=== PATIENT | male | born 1940 | race African-American/Black ===

== ENCOUNTER 2017-05-09 08:06 | Inpatient (IN) | payer MEDICARE ==
[2017-05-09] VITALS (7 sets, daily range): BP systolic 131–171; BP diastolic 67–90
[~2017-05-09] VITALS: Ht 172.7 cm; Wt 79.8 kg
[~2017-05-09 08:06] MED LIST: FURO-151 PO; LEVO500T15 PO; NIFE30TA83 PO
[2017-05-09] MEDS ORDERED: IPRATROPIUM BROMIDE (0.02%) 0.5MG/2.5ML NEB HHN STA (08:10)
[2017-05-09] MEDS ORDERED: METHYLPREDNISOLONE SOD SUCC 125 MG/2 ML VIAL IV STA (08:10)
[2017-05-09] MEDS ORDERED: ALBUTEROL (0.083%) 2.5MG/3ML NEB HHN STA (08:10)
[2017-05-09] MEDS ORDERED: NITROGLYCERIN OINT 1GM/INCH UDPKT TD ONE ×2 (08:15→08:45)
[2017-05-09] MEDS ORDERED: MAGNESIUM 2 G PREMIX 50 ML IV ONE (08:15)
[2017-05-09] MEDS ORDERED: FUROSEMIDE 40MG/4ML VIAL IVP ONE (08:15)
[2017-05-09] MEDS ORDERED: IPRATROPIUM BROMIDE (0.02%) 0.5MG/2.5ML NEB ONE (08:20)
[2017-05-09] MEDS ORDERED: ALBUTEROL (0.083%) 2.5MG/3ML NEB ONE (08:21)
[2017-05-09] MEDS ORDERED: ALBUTEROL (0.5%) 2.5MG/0.5ML NEB HHN ONE (08:21)
[2017-05-09] MEDS ORDERED: HYDRALAZINE (NEO) 1MG/ML IV ONE (08:30)
[2017-05-09 08:40] LABS: BASOPHILS % 0.7 % (0.0-2.0); EOSINOPHILS % 1.1 % (0.0-5.0); HEMOGLOBIN. 13.7 g/dL (14.0-18.0); LYMPHOCYTES % 11.3 % (20.0-50.0); MEAN CORPUSCULAR HEMOGLOBIN 30.5 pg (28.0-32.0); MEAN CORPUSCULAR VOLUME 93.8 fL (80.0-94.0); MEAN PLATELET VOLUME 9.9 fl (7.4-10.4); MONOCYTES % 7.2 % (2.0-8.0); NEUTROPHILS % 79.7 % (40.0-76.0); PLATELET 214 x1000/uL (130-400); RED BLOOD CELL COUNT 4.48 mill/uL (4.7-6.1); RED CELL DISTRIBUTION WIDTH 15.7 % (11.6-14.6)
[2017-05-09] MEDS ORDERED: HYDRALAZINE 20MG/ML VIAL IV SCH (08:45)
[2017-05-09 08:46] LABS: INR 1.1; PARTIAL THROMBOPLASTIN TIME 26.1 sec (24.0-34.0); PROTHROMBIN TIME 11.2 sec
[2017-05-09 08:54] LABS: CARBON DIOXIDE 24 mEq/L (21-32); CHLORIDE 108 mEq/L (98-107); TROPONIN I 0.11 ng/mL (0.00-0.04)
[2017-05-09 09:36] LABS: BG BASE EXCESS -1.6 mmol/L (-2.0-2.0); BG BILEVEL POS AIRWAY PRESSURE ST=15/5; BG CARBOXYHEMOGLOBIN 1.7 % (0.5-1.5); BG FRACTION INSPIRED OXYGEN 50; BG HCO3 ACT 22.4 mmol/L (22.0-26.0); BG METHEMOGLOBIN 0.2 % (0.0-1.5); BG OXYHEMOGLOBIN 97.1 % (94.0-97.0); BG PCO2 35.7 mmHg (35.0-45.0); BG PH 7.415 (7.350-7.450); BG PO2 147.5 mmHg (75.0-100.0); BG PRESSURE SUPPORT 10; BG SAMPLE SITE LEFT RADIAL; BG TOTAL HEMOGLOBIN 14.8 g/dL (12.0-18.0); BG VENT MODE MASK - BIPAP; BG VENT RATE 20 set
[2017-05-09 10:17] LABS: CLARITY URINE CLEAR (CLEAR); COLOR URINE YELLOW (YELLOW); GLUCOSE URINE NEGATIVE (NEGATIVE); KETONES URINE NEGATIVE (NEGATIVE); LEUKOCYTE ESTERASE URINE TRACE (NEGATIVE); NITRITE URINE NEGATIVE (NEGATIVE); OCCULT BLOOD URINE NEGATIVE (NEGATIVE); PH URINE 5.5 (4.5-8.0); PROTEIN URINE NEGATIVE (NEGATIVE); SPECIFIC GRAVITY URINE 1.007 (1.005-1.030); UROBILINOGEN URINE 0.2 E.U./dL (0.2-1.0)
[2017-05-09] MEDS ORDERED: LORAZEPAM 2MG/ML CPJ IV PRN (11:45)
[2017-05-09] MEDS ORDERED: HYDROMORPHONE HCL/PF 2MG/ML CPJ IV PRN (11:45)
[2017-05-09] MEDS ORDERED: GUAIFENESIN 200MG/10ML SUGAR FREE UDC PO PRN (11:45)
[2017-05-09] MEDS ORDERED: DIPHENHYDRAMINE 50MG/ML VIAL IV PRN (11:45)
[2017-05-09] MEDS ORDERED: ONDANSETRON HCL 4MG/2ML VIAL IV PRN (11:45)
[2017-05-09] MEDS ORDERED: HYDROCODONE/ACETAMINOPHEN 5/325MG TABLET PO PRN (11:45)
[2017-05-09] MEDS ORDERED: MAGNESIUM/ALUMINUM HYDROXIDE/SIMETHICONE 30ML UDC PO PRN (11:45)
[2017-05-09] MEDS ORDERED: NA PHOS,M-B/NA PHOS,DI-BA ENEMA 118ML PR PRN (11:45)
[2017-05-09] MEDS ORDERED: ACETAMINOPHEN 325MG TABLET PO PRN (11:45)
[2017-05-09] MEDS ORDERED: DOCUSATE SODIUM 100MG CAPSULE PO PRN (11:45)
[2017-05-09] MEDS ORDERED: LEVOFLOXACIN 750MG PREMIX 150 ML IV SCH (12:15)
[2017-05-09] MEDS: METHYLPREDNISOLONE SOD SUCC 125 MG/2 ML VIAL IV SCH ×2 (12:47→17:45)
[2017-05-09] MEDS: CLONIDINE 0.1MG TABLET PO PRN (12:48)
[2017-05-09] MEDS: ASPIRIN 81MG EC TABLET PO SCH (12:48)
[2017-05-09] MEDS: ENOXAPARIN 40MG/0.4ML SYR SUBCUT SCH (12:53)
[2017-05-09] MEDS: CARVEDILOL 6.25 MG TABLET PO SCH ×2 (13:41→21:04)
[2017-05-09] MEDS: LOSARTAN POTASSIUM 50 MG TABLET PO SCH (13:42)
[2017-05-09] MEDS: ISOSORB DINIT/HYDRALAZINE HCL 20/37.5MG TABLET PO SCH ×2 (13:42→21:04)
[2017-05-09] MEDS: SPIRONOLACTONE 25MG TABLET PO SCH (13:42)
[2017-05-09 15:09] LABS: CARBON DIOXIDE 24 mEq/L (21-32); CHLORIDE 107 mEq/L (98-107)
[2017-05-09 15:15] LABS: TROPONIN I 0.13 ng/mL (0.00-0.04)
[2017-05-09] MEDS: FUROSEMIDE 40MG/4ML VIAL IV SCH (17:45)
[2017-05-09] MEDS ORDERED: DEXTROSE 50% WATER 50ML SYRINGE IV PRN (17:45)
[2017-05-09] MEDS: INSULIN LISPRO 100 UNITS/ML SUBCUT SCH ×2 (17:59→21:00)
[2017-05-09] MEDS: IPRATROPIUM/ALBUTEROL 0.5-3(2.5)MG/3ML NEB HHN SCH (20:36)
[2017-05-09] MEDS: IPRATROPIUM/ALBUTEROL 0.5-3(2.5)MG/3ML NEB INH PRN ×2 (20:36→23:05)
[2017-05-09] MEDS: ATORVASTATIN CALCIUM 10MG TABLET PO SCH (21:04)
[2017-05-09] MEDS: BLOOD SUGAR DIAGNOSTIC STRIP TEST SCH (21:05)
[2017-05-10] VITALS (14 sets, daily range): BP systolic 136–170; BP diastolic 66–94
[2017-05-10] MEDS: IPRATROPIUM/ALBUTEROL 0.5-3(2.5)MG/3ML NEB HHN SCH ×6 (00:03→20:28)
[2017-05-10] MEDS: METHYLPREDNISOLONE SOD SUCC 125 MG/2 ML VIAL IV SCH ×3 (00:17→13:02)
[2017-05-10] MEDS: ISOSORB DINIT/HYDRALAZINE HCL 20/37.5MG TABLET PO SCH ×3 (05:54→23:34)
[2017-05-10] MEDS: CLONIDINE 0.1MG TABLET PO PRN ×2 (05:59→18:10)
[2017-05-10 07:09] LABS: BASOPHILS % 0.1 % (0.0-2.0); HEMATOCRIT. 38.5 % (42.0-52.0); HEMOGLOBIN. 12.8 g/dL (14.0-18.0); LYMPHOCYTES % 7.6 % (20.0-50.0); MEAN CORPUSCULAR HEMOGLOBIN 30.8 pg (28.0-32.0); MEAN CORPUSCULAR VOLUME 92.6 fL (80.0-94.0); MONOCYTES % 3.8 % (2.0-8.0); NEUTROPHILS % 88.5 % (40.0-76.0); PLATELET 208 x1000/uL (130-400); RED BLOOD CELL COUNT 4.16 mill/uL (4.7-6.1); RED CELL DISTRIBUTION WIDTH 15.6 % (11.6-14.6)
[2017-05-10 07:18] LABS: CARBON DIOXIDE 24 mEq/L (21-32); CHLORIDE 104 mEq/L (98-107); HDL CHOLESTEROL 45 mg/dL (40-59); LDL CHOLESTEROL 145 mg/dL (5-100); T4 FREE 1.21 ng/dL (0.76-1.46)
[2017-05-10] MEDS: BLOOD SUGAR DIAGNOSTIC STRIP TEST SCH ×4 (08:06→20:57)
[2017-05-10] MEDS: FUROSEMIDE 40MG/4ML VIAL IV SCH (08:07)
[2017-05-10] MEDS: CARVEDILOL 6.25 MG TABLET PO SCH (08:08)
[2017-05-10] MEDS: LOSARTAN POTASSIUM 50 MG TABLET PO SCH (08:08)
[2017-05-10] MEDS: ASPIRIN 81MG EC TABLET PO SCH (08:08)
[2017-05-10] MEDS: SPIRONOLACTONE 25MG TABLET PO SCH (08:09)
[2017-05-10] MEDS: ENOXAPARIN 40MG/0.4ML SYR SUBCUT SCH (08:09)
[2017-05-10] MEDS: INSULIN LISPRO 100 UNITS/ML SUBCUT SCH ×4 (08:20→21:04)
[2017-05-10] MEDS: CARVEDILOL 12.5MG TABLET PO SCH (21:07)
[2017-05-10] MEDS: METHYLPREDNISOLONE SOD SUCC 40 MG/ML VIAL IV SCH (21:07)
[2017-05-10] MEDS: ATORVASTATIN CALCIUM 10MG TABLET PO SCH (21:08)
[2017-05-11] VITALS (11 sets, daily range): BP systolic 135–168; BP diastolic 62–96
[2017-05-11] MEDS: IPRATROPIUM/ALBUTEROL 0.5-3(2.5)MG/3ML NEB HHN SCH ×6 (00:20→21:03)
[2017-05-11] MEDS: ISOSORB DINIT/HYDRALAZINE HCL 20/37.5MG TABLET PO SCH ×3 (06:32→21:17)
[2017-05-11 06:37] LABS: HEMATOCRIT. 36.2 % (42.0-52.0); MEAN CORPUSCULAR HEMOGLOBIN 30.7 pg (28.0-32.0); MEAN CORPUSCULAR VOLUME 92.9 fL (80.0-94.0); MEAN PLATELET VOLUME 9.7 fl (7.4-10.4); PLATELET 187 x1000/uL (130-400); RED CELL DISTRIBUTION WIDTH 15.5 % (11.6-14.6)
[2017-05-11] MEDS: BLOOD SUGAR DIAGNOSTIC STRIP TEST SCH ×4 (07:39→21:07)
[2017-05-11] MEDS: INSULIN LISPRO 100 UNITS/ML SUBCUT SCH ×4 (08:00→21:00)
[2017-05-11 08:40] LABS: PLATELET ESTIMATE NORMAL
[2017-05-11] MEDS: ENOXAPARIN 40MG/0.4ML SYR SUBCUT SCH (09:02)
[2017-05-11] MEDS: SPIRONOLACTONE 25MG TABLET PO SCH (09:02)
[2017-05-11] MEDS: LOSARTAN POTASSIUM 50 MG TABLET PO SCH (09:02)
[2017-05-11] MEDS: CARVEDILOL 12.5MG TABLET PO SCH ×2 (09:02→21:17)
[2017-05-11] MEDS: ASPIRIN 81MG EC TABLET PO SCH (09:02)
[2017-05-11] MEDS: METHYLPREDNISOLONE SOD SUCC 40 MG/ML VIAL IV SCH (09:02)
[2017-05-11] MEDS: ATORVASTATIN CALCIUM 10MG TABLET PO SCH (21:17)
[2017-05-12 00:04] VITALS: BP 158/79
[2017-05-12] MEDS: IPRATROPIUM/ALBUTEROL 0.5-3(2.5)MG/3ML NEB HHN SCH ×3 (00:14→08:46)
[2017-05-12 02:04] VITALS: BP 151/71
[2017-05-12 04:04] VITALS: BP 161/81
[2017-05-12] MEDS: ISOSORB DINIT/HYDRALAZINE HCL 20/37.5MG TABLET PO SCH (05:24)
[2017-05-12 06:23] VITALS: BP 153/77
[2017-05-12 06:52] LABS: HEMATOCRIT. 37.1 % (42.0-52.0); HEMOGLOBIN. 12.4 g/dL (14.0-18.0); LYMPHOCYTES % 10.9 % (20.0-50.0); MEAN CORPUSCULAR HEMOGLOBIN 30.7 pg (28.0-32.0); MONOCYTES % 9.4 % (2.0-8.0); NEUTROPHILS % 79.7 % (40.0-76.0); RED BLOOD CELL COUNT 4.04 mill/uL (4.7-6.1); RED CELL DISTRIBUTION WIDTH 15.8 % (11.6-14.6)
[2017-05-12] MEDS: BLOOD SUGAR DIAGNOSTIC STRIP TEST SCH (07:27)
[2017-05-12 07:45] VITALS: BP 152/97
[2017-05-12] MEDS ORDERED: PREDNISONE 20MG TABLET PO SCH (08:00)
[2017-05-12 08:04] LABS: CHLORIDE 104 mEq/L (98-107)
[2017-05-12 08:46] LABS: CARBON DIOXIDE 23 mEq/L (21-32)
[2017-05-12] MEDS: INSULIN LISPRO 100 UNITS/ML SUBCUT SCH (08:49)
[2017-05-12] MEDS: SPIRONOLACTONE 25MG TABLET PO SCH (08:50)
[2017-05-12] MEDS: CARVEDILOL 12.5MG TABLET PO SCH (08:50)
[2017-05-12] MEDS: ENOXAPARIN 40MG/0.4ML SYR SUBCUT SCH (08:50)
[2017-05-12] MEDS: LOSARTAN POTASSIUM 50 MG TABLET PO SCH (08:50)
[2017-05-12] MEDS: ASPIRIN 81MG EC TABLET PO SCH (08:50)
[2017-05-12 08:56] VITALS: BP 152/97
[2017-05-12 12:05] LABS: PLATELET ESTIMATE NORMAL
[2017-05-12 12:06] LABS: PLATELET 190 x1000/uL (130-400)
== END 2017-05-12 10:25 | disposition home or self-care (01) | DRG 291 ==
LOC: EDBEDREQSVC 08:15 → ER 08:27 → 5EST 09:11 → EDBEDREQ 09:24 → ENRESERV 10:04
PROVIDERS: ADMIT Internal Medicine; ATTEND Internal Medicine
PROC: 5A09357 Assistance with Respiratory Ventilation, Less than 24 Consecutive Hours, Continuous Positive Airway Pressure (ICD-10-PCS; principal; 2017-05-09)
DX: I11.0 Hypertensive heart disease with heart failure (principal); J18.9 Pneumonia, unspecified organism; J96.01 Acute respiratory failure with hypoxia; E46 Unspecified protein-calorie malnutrition; I16.1 Hypertensive emergency; J44.0 Chronic obstructive pulmonary disease with (acute) lower respiratory infection; J44.1 Chronic obstructive pulmonary disease with (acute) exacerbation; I50.23 Acute on chronic systolic (congestive) heart failure; I42.0 Dilated cardiomyopathy; D63.8 Anemia in other chronic diseases classified elsewhere; E78.00 Pure hypercholesterolemia, unspecified; E78.5 Hyperlipidemia, unspecified; F17.210 Nicotine dependence, cigarettes, uncomplicated; Z91.19 Patient's noncompliance with other medical treatment and regimen; Z68.26 Body mass index [BMI] 26.0-26.9, adult; Z79.899 Other long term (current) drug therapy; Z82.49 Family history of ischemic heart disease and other diseases of the circulatory system; Z83.3 Family history of diabetes mellitus
CPT/HCPCS: 36415; 36600; 71010; 80048; 80053; 80061; 81001; 82375; 82805; 82962; 83605; 83690; 83735; 83880; 84439; 84443; 84484; 85025; 85610; 85730; 87040; 87086; 93005; 93306; 93970; 94640; 94660; 96365; 96375; 99291; J0360; J1650; J1815; J1940; J1956; J2060; J2920; J2930; J3475; J7040; J7512; J7611; J7620

== ENCOUNTER 2017-07-05 22:06 | Inpatient (IN) | payer MEDICARE ==
[~2017-07-05] VITALS: Ht 182.9 cm; Wt 86.6 kg
[2017-07-05] MEDS ORDERED: FUROSEMIDE 40MG/4ML VIAL IVP ONE (22:15)
[2017-07-05] MEDS ORDERED: IPRATROPIUM BROMIDE (0.02%) 0.5MG/2.5ML NEB ONE (22:22)
[2017-07-05] MEDS ORDERED: ALBUTEROL (0.083%) 2.5MG/3ML NEB ONE (22:22)
[2017-07-05] MEDS ORDERED: NITROGLYCERIN 50MG PREMIX 250 ML IV ONE (22:45)
[2017-07-05 22:52] LABS: BASOPHILS % 1.2 % (0.0-2.0); EOSINOPHILS % 8.2 % (0.0-5.0); HEMATOCRIT. 37.8 % (42.0-52.0); HEMOGLOBIN. 12.6 g/dL (14.0-18.0); LYMPHOCYTES % 15.5 % (20.0-50.0); MEAN CORPUSCULAR HEMOGLOBIN 31.3 pg (28.0-32.0); MEAN CORPUSCULAR VOLUME 93.6 fL (80.0-94.0); MEAN PLATELET VOLUME 8.8 fl (7.4-10.4); MONOCYTES % 11.3 % (2.0-8.0); NEUTROPHILS % 63.8 % (40.0-76.0); PLATELET 266 x1000/uL (130-400); RED BLOOD CELL COUNT 4.04 mill/uL (4.7-6.1); RED CELL DISTRIBUTION WIDTH 15.2 % (11.6-14.6)
[2017-07-05 22:58] LABS: INR 1.1; PROTHROMBIN TIME 11.7 sec (9.4-11.6)
[2017-07-05 23:02] LABS: CHLORIDE 107 mEq/L (98-107)
[2017-07-05 23:04] LABS: CARBON DIOXIDE 27 mEq/L (21-32); ETHANOL BLOOD < 10 mg/dL
[2017-07-05 23:08] LABS: BG BASE EXCESS -4.3 mmol/L (-2.0-2.0); BG BILEVEL POS AIRWAY PRESSURE 15/5; BG CARBOXYHEMOGLOBIN 1.7 % (0.5-1.5); BG DEOXYHEMOGLOBIN 10.6 % (0.0-5.0); BG FRACTION INSPIRED OXYGEN 75; BG HCO3 ACT 22.8 mmol/L (22.0-26.0); BG METHEMOGLOBIN 0.3 % (0.0-1.5); BG OXYGEN SATURATION 89.2 % (92.0-98.5); BG OXYHEMOGLOBIN 87.4 % (94.0-97.0); BG PCO2 49.9 mmHg (35.0-45.0); BG PH 7.278 (7.350-7.450); BG PO2 66.2 mmHg (75.0-100.0); BG PRESSURE SUPPORT 10; BG SAMPLE SITE LEFT RADIAL; BG TIDAL VOLUME(mL) 685 mL; BG TOTAL HEMOGLOBIN 13.5 g/dL (12.0-18.0); BG VENT MODE MASK - BIPAP; BG VENT RATE 20/38 set
[2017-07-05 23:10] LABS: TROPONIN I 0.33 ng/mL (0.00-0.04)
[2017-07-05] MEDS ORDERED: LEVOFLOXACIN 500MG PREMIX 100 ML IV ONE (23:30)
[2017-07-06] VITALS (67 sets, daily range): BP systolic 48–186; BP diastolic 20–146
[2017-07-06] MEDS ORDERED: ONDANSETRON HCL 4MG/2ML VIAL IV PRN (01:00)
[2017-07-06] MEDS ORDERED: DIPHENHYDRAMINE 50MG/ML VIAL IV PRN (01:00)
[2017-07-06] MEDS ORDERED: NITROGLYCERIN 50MG PREMIX 250 ML IV PRN (01:00)
[2017-07-06] MEDS ORDERED: GUAIFENESIN 200MG/10ML SUGAR FREE UDC PO PRN (01:00)
[2017-07-06] MEDS ORDERED: ACETAMINOPHEN 325MG TABLET PO PRN (02:54)
[2017-07-06] MEDS ORDERED: DEXTROSE 50% WATER 50ML SYRINGE IV PRN (02:57)
[2017-07-06] MEDS ORDERED: IPRATROPIUM/ALBUTEROL 0.5-3(2.5)MG/3ML NEB INH PRN (02:57)
[2017-07-06] MEDS: FUROSEMIDE 40MG/4ML VIAL IVP SCH ×2 (05:08→17:33)
[2017-07-06] MEDS: SODIUM CHLORIDE 0.9% INJ 3ML FLUSH IVF SCH ×3 (06:00→21:31)
[2017-07-06] MEDS: INSULIN LISPRO 100 UNITS/ML SUBCUT SCH ×4 (08:13→21:00)
[2017-07-06] MEDS: BLOOD SUGAR DIAGNOSTIC STRIP TEST SCH ×4 (08:14→21:31)
[2017-07-06] MEDS: LOSARTAN POTASSIUM 50 MG TABLET PO SCH (09:31)
[2017-07-06] MEDS: ASPIRIN 81MG EC TABLET PO SCH (09:31)
[2017-07-06] MEDS: ENOXAPARIN 40MG/0.4ML SYR SUBCUT SCH (09:31)
[2017-07-06] MEDS: SPIRONOLACTONE 25MG TABLET PO SCH (09:31)
[2017-07-06] MEDS: POTASSIUM CHLORIDE 20MEQ TABLET SR PO SCH (09:31)
[2017-07-06] MEDS: CARVEDILOL 12.5MG TABLET PO SCH ×2 (09:32→21:03)
[2017-07-06] MEDS ORDERED: ASPI-1159 PO (10:59)
[2017-07-06] MEDS ORDERED: GARL200T PO (10:59)
[2017-07-06] MEDS ORDERED: OMEG500C PO (10:59)
[2017-07-06] MEDS: IPRATROPIUM/ALBUTEROL 0.5-3(2.5)MG/3ML NEB HHN SCH ×3 (11:52→20:01)
[2017-07-06] MEDS ORDERED: FUROSEMIDE 40MG/4ML VIAL IVP NR (13:00)
[2017-07-06] MEDS: ISOSORB DINIT/HYDRALAZINE HCL 20/37.5MG TABLET PO SCH ×2 (13:50→21:25)
[2017-07-06 14:18] LABS: CLARITY URINE CLOUDY (CLEAR); COLOR URINE YELLOW (YELLOW); GLUCOSE URINE NEGATIVE (NEGATIVE); KETONES URINE NEGATIVE (NEGATIVE); LEUKOCYTE ESTERASE URINE NEGATIVE (NEGATIVE); NITRITE URINE NEGATIVE (NEGATIVE); OCCULT BLOOD URINE 3+ (NEGATIVE); PH URINE 5.5 (4.5-8.0); PROTEIN URINE 3+ (NEGATIVE); SPECIFIC GRAVITY URINE 1.019 (1.005-1.030)
[2017-07-06 15:10] LABS: CREATINE KINASE 570 IU/L (39-308)
[2017-07-06] MEDS: ATORVASTATIN CALCIUM 10MG TABLET PO SCH (21:02)
[2017-07-06] MEDS: CLONIDINE 0.1MG TABLET PO PRN (21:54)
[2017-07-07] VITALS (44 sets, daily range): BP systolic 101–164; BP diastolic 58–101
[2017-07-07] MEDS: IPRATROPIUM/ALBUTEROL 0.5-3(2.5)MG/3ML NEB HHN SCH ×6 (00:24→21:24)
[2017-07-07] MEDS ORDERED: VANCOMYCIN 1,750 MG in DEXT 5% WATER 500 ML IV SCH (04:00)
[2017-07-07] MEDS ORDERED: VANCOMYCIN 1,750 MG in DEXT 5% WATER 250 ML IV SCH (04:00)
[2017-07-07] MEDS: LEVOFLOXACIN 500MG PREMIX 100 ML IV SCH (04:31)
[2017-07-07] MEDS: FUROSEMIDE 40MG/4ML VIAL IVP SCH ×2 (04:33→18:08)
[2017-07-07 05:25] LABS: EOSINOPHILS % 8.5 % (0.0-5.0); HEMATOCRIT. 33.6 % (42.0-52.0); HEMOGLOBIN. 11.2 g/dL (14.0-18.0); LYMPHOCYTES % 12.2 % (20.0-50.0); MEAN CORPUSCULAR HEMOGLOBIN 30.8 pg (28.0-32.0); MEAN CORPUSCULAR VOLUME 92.4 fL (80.0-94.0); MONOCYTES % 11.2 % (2.0-8.0); NEUTROPHILS % 67.1 % (40.0-76.0); PLATELET 242 x1000/uL (130-400); RED BLOOD CELL COUNT 3.64 mill/uL (4.7-6.1); RED CELL DISTRIBUTION WIDTH 15.3 % (11.6-14.6)
[2017-07-07] MEDS: ISOSORB DINIT/HYDRALAZINE HCL 20/37.5MG TABLET PO SCH ×3 (05:31→21:24)
[2017-07-07] MEDS: OMEPRAZOLE 20MG CAPSULE EXTENDED RELEASE PO SCH (05:31)
[2017-07-07] MEDS: CLONIDINE 0.1MG TABLET PO PRN (05:32)
[2017-07-07] MEDS: INSULIN LISPRO 100 UNITS/ML SUBCUT SCH ×4 (06:20→20:33)
[2017-07-07] MEDS: BLOOD SUGAR DIAGNOSTIC STRIP TEST SCH ×4 (06:20→20:27)
[2017-07-07] MEDS: SODIUM CHLORIDE 0.9% INJ 3ML FLUSH IVF SCH ×3 (06:20→21:24)
[2017-07-07 06:50] LABS: CARBON DIOXIDE 31 mEq/L (21-32); CHLORIDE 104 mEq/L (98-107); PHOSPHORUS 2.8 mg/dL (2.5-4.9)
[2017-07-07 08:56] LABS: BG BASE EXCESS 2.2 mmol/L (-2.0-2.0); BG CARBOXYHEMOGLOBIN 0.3 % (0.5-1.5); BG DEOXYHEMOGLOBIN 1.7 % (0.0-5.0); BG FRACTION INSPIRED OXYGEN 32; BG HCO3 ACT 26.3 mmol/L (22.0-26.0); BG METHEMOGLOBIN 0.1 % (0.0-1.5); BG OXYGEN SATURATION 98.3 % (92.0-98.5); BG OXYHEMOGLOBIN 97.9 % (94.0-97.0); BG PH 7.446 (7.350-7.450); BG PO2 115.6 mmHg (75.0-100.0); BG SAMPLE SITE RIGHT BRACHIAL; BG TOTAL HEMOGLOBIN 12.2 g/dL (12.0-18.0); BG VENT MODE NASAL CANNULA
[2017-07-07] MEDS: POTASSIUM CHLORIDE 20MEQ TABLET SR PO SCH (09:56)
[2017-07-07] MEDS: LOSARTAN POTASSIUM 50 MG TABLET PO SCH (09:56)
[2017-07-07] MEDS: SPIRONOLACTONE 25MG TABLET PO SCH (09:56)
[2017-07-07] MEDS: AMLODIPINE 5MG TABLET PO SCH (09:57)
[2017-07-07] MEDS: CARVEDILOL 12.5MG TABLET PO SCH ×2 (09:57→21:23)
[2017-07-07] MEDS: ASPIRIN 81MG EC TABLET PO SCH (09:57)
[2017-07-07] MEDS: ENOXAPARIN 40MG/0.4ML SYR SUBCUT SCH (09:57)
[2017-07-07] MEDS: VANCOMYCIN 1250MG in DEXTROSE 5% WATER 250ML IV SCH (18:09)
[2017-07-07] MEDS: ATORVASTATIN CALCIUM 10MG TABLET PO SCH (21:23)
[2017-07-08] VITALS: BP 133/73
[2017-07-08] MEDS: IPRATROPIUM/ALBUTEROL 0.5-3(2.5)MG/3ML NEB HHN SCH ×6 (00:39→19:54)
[2017-07-08 04:00] VITALS: BP 123/55
[2017-07-08] MEDS: FUROSEMIDE 40MG/4ML VIAL IVP SCH (06:04)
[2017-07-08] MEDS: BLOOD SUGAR DIAGNOSTIC STRIP TEST SCH ×4 (06:06→20:20)
[2017-07-08] MEDS: SODIUM CHLORIDE 0.9% INJ 3ML FLUSH IVF SCH ×3 (06:06→21:07)
[2017-07-08] MEDS: ISOSORB DINIT/HYDRALAZINE HCL 20/37.5MG TABLET PO SCH ×3 (06:06→21:08)
[2017-07-08] MEDS: INSULIN LISPRO 100 UNITS/ML SUBCUT SCH ×4 (07:21→21:00)
[2017-07-08 07:57] VITALS: BP 144/57
[2017-07-08] MEDS: CARVEDILOL 25MG TABLET PO SCH ×2 (09:01→21:08)
[2017-07-08] MEDS: LEVOFLOXACIN 500MG PREMIX 100 ML IV SCH (09:01)
[2017-07-08] MEDS: SPIRONOLACTONE 25MG TABLET PO SCH (09:02)
[2017-07-08] MEDS: OMEPRAZOLE 20MG CAPSULE EXTENDED RELEASE PO SCH (09:02)
[2017-07-08] MEDS: LOSARTAN POTASSIUM 50 MG TABLET PO SCH (09:02)
[2017-07-08] MEDS: AMLODIPINE 5MG TABLET PO SCH (09:02)
[2017-07-08] MEDS: POTASSIUM CHLORIDE 20MEQ TABLET SR PO SCH (09:02)
[2017-07-08 11:00] LABS: CARBON DIOXIDE 30 mEq/L (21-32); CHLORIDE 101 mEq/L (98-107)
[2017-07-08] MEDS: VANCOMYCIN 1250MG in DEXTROSE 5% WATER 250ML IV SCH (11:18)
[2017-07-08 12:03] VITALS: BP 133/77
[2017-07-08 16:06] VITALS: BP 113/80
[2017-07-08] MEDS: FUROSEMIDE 40MG TABLET PO SCH (17:35)
[2017-07-08] MEDS: METHYLPREDNISOLONE SOD SUCC 40 MG/ML VIAL IV SCH (20:21)
[2017-07-08 20:30] LABS: BG BASE EXCESS 0.3 mmol/L (-2.0-2.0); BG CARBOXYHEMOGLOBIN 0.6 % (0.5-1.5); BG DEOXYHEMOGLOBIN 7.9 % (0.0-5.0); BG FRACTION INSPIRED OXYGEN 32; BG HCO3 ACT 24.8 mmol/L (22.0-26.0); BG METHEMOGLOBIN 0.4 % (0.0-1.5); BG OXYHEMOGLOBIN 91.1 % (94.0-97.0); BG PCO2 39.9 mmHg (35.0-45.0); BG PH 7.412 (7.350-7.450); BG SAMPLE SITE RIGHT RADIAL; BG TOTAL HEMOGLOBIN 13.6 g/dL (12.0-18.0); BG VENT MODE NASAL CANNULA
[2017-07-08 20:35] VITALS: BP 153/81
[2017-07-08] MEDS: ATORVASTATIN CALCIUM 10MG TABLET PO SCH (21:08)
[2017-07-09] VITALS: BP 118/82
[2017-07-09] MEDS: IPRATROPIUM/ALBUTEROL 0.5-3(2.5)MG/3ML NEB HHN PRN ×2 (00:28→04:08)
[2017-07-09] MEDS: METHYLPREDNISOLONE SOD SUCC 40 MG/ML VIAL IV SCH ×2 (03:43→13:35)
[2017-07-09 04:00] VITALS: BP 139/71
[2017-07-09] MEDS: VANCOMYCIN 1250MG in DEXTROSE 5% WATER 250ML IV SCH (05:21)
[2017-07-09] MEDS: ISOSORB DINIT/HYDRALAZINE HCL 20/37.5MG TABLET PO SCH ×2 (05:21→13:35)
[2017-07-09] MEDS: FUROSEMIDE 40MG TABLET PO SCH (05:21)
[2017-07-09] MEDS: SODIUM CHLORIDE 0.9% INJ 3ML FLUSH IVF SCH ×2 (05:27→14:00)
[2017-07-09] MEDS: BLOOD SUGAR DIAGNOSTIC STRIP TEST SCH ×2 (05:28→12:40)
[2017-07-09 07:17] LABS: HEMATOCRIT. 37.1 % (42.0-52.0); HEMOGLOBIN. 12.3 g/dL (14.0-18.0); MEAN CORPUSCULAR HEMOGLOBIN 30.6 pg (28.0-32.0); MEAN CORPUSCULAR VOLUME 92.2 fL (80.0-94.0); MEAN PLATELET VOLUME 8.8 fl (7.4-10.4); PLATELET 298 x1000/uL (130-400); RED BLOOD CELL COUNT 4.02 mill/uL (4.7-6.1); RED CELL DISTRIBUTION WIDTH 15.1 % (11.6-14.6)
[2017-07-09 08:00] VITALS: BP 128/67
[2017-07-09 08:01] LABS: CARBON DIOXIDE 26 mEq/L (21-32); CHLORIDE 101 mEq/L (98-107)
[2017-07-09] MEDS: IPRATROPIUM/ALBUTEROL 0.5-3(2.5)MG/3ML NEB HHN SCH ×3 (08:30→16:00)
[2017-07-09] MEDS: POTASSIUM CHLORIDE 20MEQ TABLET SR PO SCH (08:56)
[2017-07-09] MEDS: AMLODIPINE 5MG TABLET PO SCH (08:56)
[2017-07-09] MEDS: LOSARTAN POTASSIUM 50 MG TABLET PO SCH (08:56)
[2017-07-09] MEDS: CARVEDILOL 25MG TABLET PO SCH (08:57)
[2017-07-09] MEDS: SPIRONOLACTONE 25MG TABLET PO SCH (08:57)
[2017-07-09] MEDS ORDERED: FAMOTIDINE 20MG TABLET PO SCH (09:00)
[2017-07-09 12:00] VITALS: BP 139/69
[2017-07-09 12:57] LABS: PLATELET ESTIMATE NORMAL
[2017-07-09] MEDS ORDERED: BUDESONIDE 0.5MG/2ML NEB HHN SCH (13:00)
[2017-07-09] MEDS: INSULIN LISPRO 100 UNITS/ML SUBCUT SCH ×2 (13:10→13:44)
[2017-07-09 16:00] VITALS: BP 148/82
[2017-07-09 17:49] VITALS: BP 132/69
[2017-07-09] MEDS ORDERED: VANCOMYCIN 1 G PREMIX 200 ML IV SCH (23:00)
== END 2017-07-09 18:05 | disposition home or self-care (01) | DRG 177 ==
LOC: ER 22:55 → MICUSO 23:20 → EDBEDREQ 23:30 → EDBEDREQSVC 23:31 → ENRESERV 07-06 06:49 → 7WST 07-07 15:00
PROVIDERS: ADMIT Internal Medicine; ATTEND Internal Medicine
PROC: 5A09357 Assistance with Respiratory Ventilation, Less than 24 Consecutive Hours, Continuous Positive Airway Pressure (ICD-10-PCS; principal; 2017-07-06)
DX: J69.0 Pneumonitis due to inhalation of food and vomit (principal); J96.01 Acute respiratory failure with hypoxia; E43 Unspecified severe protein-calorie malnutrition; I50.43 Acute on chronic combined systolic (congestive) and diastolic (congestive) heart failure; I47.2 Ventricular tachycardia; E87.2 Acidosis; I16.1 Hypertensive emergency; J44.1 Chronic obstructive pulmonary disease with (acute) exacerbation; I42.9 Cardiomyopathy, unspecified; I11.0 Hypertensive heart disease with heart failure; E11.65 Type 2 diabetes mellitus with hyperglycemia; I34.0 Nonrheumatic mitral (valve) insufficiency; H54.7 Unspecified visual loss; Z68.25 Body mass index [BMI] 25.0-25.9, adult; E78.00 Pure hypercholesterolemia, unspecified; E78.5 Hyperlipidemia, unspecified; F17.200 Nicotine dependence, unspecified, uncomplicated
CPT/HCPCS: 36415; 36600; 51702; 71010; 80048; 80053; 80202; 81001; 82375; 82550; 82805; 82962; 83036; 83605; 83690; 83735; 83880; 84100; 84484; 85025; 85610; 86850; 86900; 87040; 87086; 93005; 93306; 94640; 94660; 96365; 96375; 97116; 97162; 99291; C1893; G0482; J1200; J1650; J1815; J1940; J1956; J2920; J3370; J3490; J7050; J7060; J7611; J7620; J7626; A4315

== ENCOUNTER 2017-07-19 17:14 | Inpatient (IN) | payer MEDICARE ==
[~2017-07-19] VITALS: Ht 185.4 cm; Wt 84.8 kg
[~2017-07-19 17:14] MED LIST changes: +ASPI-1159 PO; +GARL200T PO; -LEVO500T15 PO; +LEVO500T2 PO; +OMEG500C PO
[2017-07-19] MEDS ORDERED: PANTOPRAZOLE 80 MG in SODIUM CHLORIDE 0.9% 100 ML IV SCH (18:15)
[2017-07-19] MEDS ORDERED: PANTOPRAZOLE SODIUM 40 MG/VIAL IV ONE (18:15)
[2017-07-19] MEDS ORDERED: PANTOPRAZOLE 80 MG in SODIUM CHLORIDE 0.9% 100 ML IV NR (18:30)
[2017-07-19 18:45] LABS: BASOPHILS % 0.5 % (0.0-2.0); EOSINOPHILS % 0.5 % (0.0-5.0); HEMATOCRIT. 26.4 % (42.0-52.0); HEMOGLOBIN. 8.6 g/dL (14.0-18.0); LYMPHOCYTES % 8.1 % (20.0-50.0); MEAN CORPUSCULAR HEMOGLOBIN 30.1 pg (28.0-32.0); MEAN CORPUSCULAR VOLUME 92.4 fL (80.0-94.0); MEAN PLATELET VOLUME 7.6 fl (7.4-10.4); MONOCYTES % 3.3 % (2.0-8.0); NEUTROPHILS % 87.6 % (40.0-76.0); PLATELET 198 x1000/uL (130-400); RED BLOOD CELL COUNT 2.86 mill/uL (4.7-6.1)
[2017-07-19 18:52] LABS: INR 1.2; PROTHROMBIN TIME 12.1 sec (9.4-11.6)
[2017-07-19 18:54] LABS: CARBON DIOXIDE 21 mEq/L (21-32); CHLORIDE 108 mEq/L (98-107)
[2017-07-19 19:01] LABS: TROPONIN I 0.03 ng/mL (0.00-0.04)
[2017-07-19 21:36] VITALS: BP 110/59
[2017-07-19 22:00] VITALS: BP 100/49
[2017-07-19] MEDS ORDERED: SODIUM CHLORIDE 0.9% 1,000 ML IV SCH (22:28)
[2017-07-19] MEDS ORDERED: DIPHENHYDRAMINE 50MG/ML VIAL IV PRN (22:30)
[2017-07-19] MEDS ORDERED: ONDANSETRON HCL 4MG/2ML VIAL IV PRN (22:30)
[2017-07-19] MEDS ORDERED: ACETAMINOPHEN 325MG TABLET PO PRN (22:30)
[2017-07-19] MEDS ORDERED: IPRATROPIUM/ALBUTEROL 0.5-3(2.5)MG/3ML NEB INH PRN (22:30)
[2017-07-19] MEDS: AMLODIPINE 5MG TABLET PO SCH (23:05)
[2017-07-19] MEDS ORDERED: PANTOPRAZOLE SODIUM 40 MG/VIAL IV SCH (23:09)
[2017-07-20] VITALS (11 sets, daily range): BP systolic 67–126; BP diastolic 19–79
[2017-07-20] MEDS ORDERED: BUDESONIDE 0.25MG/2ML NEB HHN ONE
[2017-07-20] MEDS: NITROGLYCERIN OINT 1GM/INCH UDPKT TD SCH ×3 (06:02→21:16)
[2017-07-20 06:18] LABS: BASOPHILS % 0.7 % (0.0-2.0); EOSINOPHILS % 1.6 % (0.0-5.0); HEMATOCRIT. 25.5 % (42.0-52.0); HEMOGLOBIN. 8.5 g/dL (14.0-18.0); LYMPHOCYTES % 18.3 % (20.0-50.0); MEAN CORPUSCULAR HEMOGLOBIN 30.4 pg (28.0-32.0); MEAN CORPUSCULAR VOLUME 91.9 fL (80.0-94.0); MONOCYTES % 10.5 % (2.0-8.0); NEUTROPHILS % 68.9 % (40.0-76.0); PLATELET 192 x1000/uL (130-400); RED BLOOD CELL COUNT 2.78 mill/uL (4.7-6.1); RED CELL DISTRIBUTION WIDTH 15.3 % (11.6-14.6)
[2017-07-20] MEDS: CARVEDILOL 3.125 MG TABLET PO SCH ×2 (09:00→20:30)
[2017-07-20] MEDS: PANTOPRAZOLE SODIUM 40 MG/VIAL IV SCH ×2 (09:23→20:22)
[2017-07-20] MEDS: FUROSEMIDE 20MG/2ML VIAL IVP SCH (09:23)
[2017-07-20] MEDS: AMLODIPINE 5MG TABLET PO SCH ×2 (11:05→23:10)
[2017-07-20] MEDS ORDERED: SIMETHICONE 40 MG/0.6 ML 30ML ONE (12:26)
[2017-07-20] MEDS ORDERED: FENTANYL CITRATE/PF 50MCG/ML 2ML VIAL ONE (12:27)
[2017-07-20] MEDS ORDERED: MIDAZOLAM HCL 5 MG/5 ML VIAL ONE (12:27)
[2017-07-20] MEDS ORDERED: MIDAZOLAM HCL 5 MG/5 ML VIAL IV PRN (12:51)
[2017-07-20] MEDS ORDERED: FENTANYL CITRATE/PF 50MCG/ML 2ML VIAL IV PRN (12:51)
[2017-07-20 17:32] LABS: INR 1.1; PARTIAL THROMBOPLASTIN TIME 24.4 sec (23.4-31.0); PROTHROMBIN TIME 11.8 sec (9.4-11.6)
[2017-07-20] MEDS ORDERED: GUAIFENESIN 200MG/10ML SUGAR FREE UDC PO PRN (20:15)
[2017-07-21] VITALS (9 sets, daily range): BP systolic 96–128; BP diastolic 53–72
[2017-07-21] MEDS: NITROGLYCERIN OINT 1GM/INCH UDPKT TD SCH ×2 (05:43→13:26)
[2017-07-21] MEDS: CARVEDILOL 3.125 MG TABLET PO SCH (08:16)
[2017-07-21] MEDS: PANTOPRAZOLE SODIUM 40 MG/VIAL IV SCH (08:16)
[2017-07-21] MEDS: FUROSEMIDE 20MG/2ML VIAL IVP SCH (08:16)
[2017-07-21] MEDS ORDERED: SIMETHICONE 40 MG/0.6 ML 30ML ONE (09:05)
[2017-07-21] MEDS ORDERED: SODIUM CHLORIDE 0.9% 10ML VIAL ONE (09:05)
[2017-07-21] MEDS ORDERED: AMLODIPINE 5MG TABLET PO SCH (10:17)
[2017-07-21] MEDS ORDERED: AMLODIPINE 2.5MG TABLET PO SCH (10:18)
[2017-07-21] MEDS ORDERED: CARVEDILOL 6.25 MG TABLET PO SCH (21:00)
== END 2017-07-21 15:50 | disposition home or self-care (01) | DRG 377 ==
LOC: ER 18:50 → EDBEDREQ 19:55 → ENRESERV 20:15 → ER 21:07 → 5EST 21:45
PROVIDERS: ADMIT Internal Medicine; ATTEND Internal Medicine
PROC: 0DB68ZX Excision of Stomach, Via Natural or Artificial Opening Endoscopic, Diagnostic (ICD-10-PCS; principal; 2017-07-20 13:00)
DX: K25.4 Chronic or unspecified gastric ulcer with hemorrhage (principal); E43 Unspecified severe protein-calorie malnutrition; I50.22 Chronic systolic (congestive) heart failure; I11.0 Hypertensive heart disease with heart failure; J44.9 Chronic obstructive pulmonary disease, unspecified; D64.9 Anemia, unspecified; E78.5 Hyperlipidemia, unspecified; E78.00 Pure hypercholesterolemia, unspecified; I25.10 Atherosclerotic heart disease of native coronary artery without angina pectoris; K29.70 Gastritis, unspecified, without bleeding; K44.9 Diaphragmatic hernia without obstruction or gangrene; Z72.0 Tobacco use; Z79.2 Long term (current) use of antibiotics; Z79.82 Long term (current) use of aspirin; Z79.899 Other long term (current) drug therapy; Z72.89 Other problems related to lifestyle; E61.1 Iron deficiency
CPT/HCPCS: 36415; 36430; 71010; 80048; 80053; 83605; 83690; 83880; 84484; 85025; 85610; 85730; 86850; 86900; 86920; 88305; 88312; 88313; 93005; 94640; 94664; 96374; 99152; 99285; A4216; C9113; J1940; J2250; J3010; J7030; J7050; J7620; J7626

== ENCOUNTER 2017-09-18 13:07 | Inpatient (IN) | payer MEDICARE ==
[~2017-09-18] VITALS: Ht 186.7 cm; Wt 85.4 kg
[~2017-09-18 13:07] MED LIST changes: -ASPI-1159 PO
[2017-09-18] MEDS ORDERED: METHYLPREDNISOLONE SOD SUCC 125 MG/2 ML VIAL IV STA (13:19)
[2017-09-18] MEDS ORDERED: IPRATROPIUM BROMIDE (0.02%) 0.5MG/2.5ML NEB HHN STA (13:19)
[2017-09-18] MEDS: ALBUTEROL (0.083%) 2.5MG/3ML NEB HHN SCH ×3 (13:30→14:25)
[2017-09-18] MEDS ORDERED: ALBUTEROL (0.5%) 2.5MG/0.5ML NEB HHN ONE ×2 (13:40→16:00)
[2017-09-18 14:23] LABS: HEMOGLOBIN. 12.1 g/dL (14.0-18.0); MEAN CORPUSCULAR HEMOGLOBIN 30.1 pg (28.0-32.0); MEAN CORPUSCULAR VOLUME 91.8 fL (80.0-94.0); MEAN PLATELET VOLUME 8.4 fl (7.4-10.4); PLATELET 231 x1000/uL (130-400); RED BLOOD CELL COUNT 4.03 mill/uL (4.7-6.1); RED CELL DISTRIBUTION WIDTH 16.8 % (11.6-14.6)
[2017-09-18 14:39] LABS: CARBON DIOXIDE 26 mEq/L (21-32); CHLORIDE 105 mEq/L (98-107); TROPONIN I 0.13 ng/mL (0.00-0.04)
[2017-09-18 15:20] LABS: PLATELET ESTIMATE NORMAL
[2017-09-18] MEDS ORDERED: ASPIRIN 81MG TABLET PO ONE (16:00)
[2017-09-18 16:35] LABS: BG CARBOXYHEMOGLOBIN 0.8 % (0.5-1.5); BG DEOXYHEMOGLOBIN 4.5 % (0.0-5.0); BG FRACTION INSPIRED OXYGEN 36; BG HCO3 ACT 21.3 mmol/L (22.0-26.0); BG METHEMOGLOBIN 0.4 % (0.0-1.5); BG OXYGEN SATURATION 95.4 % (92.0-98.5); BG OXYHEMOGLOBIN 94.3 % (94.0-97.0); BG PCO2 35.6 mmHg (35.0-45.0); BG PH 7.394 (7.350-7.450); BG PO2 79.1 mmHg (75.0-100.0); BG SAMPLE SITE RIGHT RADIAL; BG TOTAL HEMOGLOBIN 12.9 g/dL (12.0-18.0); BG VENT MODE NASAL CANNULA
[2017-09-18] MEDS ORDERED: GUAIFENESIN 200MG/10ML SUGAR FREE UDC PO PRN (16:45)
[2017-09-18] MEDS ORDERED: NA PHOS,M-B/NA PHOS,DI-BA ENEMA 118ML PR PRN (16:45)
[2017-09-18] MEDS ORDERED: MAGNESIUM/ALUMINUM HYDROXIDE/SIMETHICONE 30ML UDC PO PRN (16:45)
[2017-09-18] MEDS ORDERED: IPRATROPIUM/ALBUTEROL 0.5-3(2.5)MG/3ML NEB INH PRN (16:45)
[2017-09-18] MEDS ORDERED: HYDROMORPHONE HCL/PF 2MG/ML CPJ IV PRN (16:45)
[2017-09-18] MEDS ORDERED: DOCUSATE SODIUM 100MG CAPSULE PO PRN (16:45)
[2017-09-18] MEDS ORDERED: LORAZEPAM 2MG/ML CPJ IV PRN (16:45)
[2017-09-18] MEDS ORDERED: ONDANSETRON HCL 4MG/2ML VIAL IV PRN (16:45)
[2017-09-18] MEDS ORDERED: ACETAMINOPHEN 325MG TABLET PO PRN (16:45)
[2017-09-18] MEDS ORDERED: HYDROCODONE/ACETAMINOPHEN 5/325MG TABLET PO PRN (16:45)
[2017-09-18] MEDS ORDERED: DIPHENHYDRAMINE 50MG/ML VIAL IV PRN (16:45)
[2017-09-18 19:38] LABS: CHLORIDE 105 mEq/L (98-107)
[2017-09-18 19:44] LABS: CARBON DIOXIDE 24 mEq/L (21-32)
[2017-09-18] MEDS ORDERED: METHYLPREDNISOLONE SOD SUCC 125 MG/2 ML VIAL IV SCH (20:00)
[2017-09-18] MEDS: CLONIDINE 0.1MG TABLET PO PRN (21:02)
[2017-09-18 21:30] VITALS: BP 199/101
[2017-09-18 21:50] VITALS: BP 199/81
[2017-09-18] MEDS ORDERED: NON FORMULARY PATIENT HOME MED EA XX SCH ×2 (22:30)
[2017-09-18] MEDS ORDERED: INFLUENZA VIRUS VACCINE 0.5ML SYR IM ONE (23:00)
[2017-09-18] MEDS: METHYLPREDNISOLONE SOD SUCC 125 MG/2 ML VIAL IV SCH (23:33)
[2017-09-18] MEDS: NIFEDIPINE XL 30MG TAB PO SCH (23:33)
[2017-09-19] VITALS: BP 171/99
[2017-09-19 04:00] VITALS: BP 175/94
[2017-09-19] MEDS: CLONIDINE 0.1MG TABLET PO PRN ×2 (04:12→16:03)
[2017-09-19] MEDS: METHYLPREDNISOLONE SOD SUCC 125 MG/2 ML VIAL IV SCH ×2 (04:12→13:21)
[2017-09-19 06:52] LABS: HEMATOCRIT. 35.9 % (42.0-52.0); HEMOGLOBIN. 11.7 g/dL (14.0-18.0); MEAN CORPUSCULAR HEMOGLOBIN 29.6 pg (28.0-32.0); MEAN CORPUSCULAR VOLUME 90.8 fL (80.0-94.0); MEAN PLATELET VOLUME 9.4 fl (7.4-10.4); PLATELET 230 x1000/uL (130-400); RED BLOOD CELL COUNT 3.95 mill/uL (4.7-6.1); RED CELL DISTRIBUTION WIDTH 16.9 % (11.6-14.6)
[2017-09-19 07:18] LABS: CARBON DIOXIDE 25 mEq/L (21-32); CHLORIDE 105 mEq/L (98-107); HDL CHOLESTEROL 65 mg/dL (40-59); LDL CHOLESTEROL 135 mg/dL (5-100)
[2017-09-19 07:23] LABS: TROPONIN I 0.13 ng/mL (0.00-0.04)
[2017-09-19 08:00] VITALS: BP 153/83
[2017-09-19] MEDS ORDERED: FUROSEMIDE 40MG/4ML VIAL IV SCH (09:00)
[2017-09-19] MEDS ORDERED: ASPIRIN 81MG EC TABLET PO SCH (09:00)
[2017-09-19] MEDS ORDERED: ENOXAPARIN 40MG/0.4ML SYR SUBCUT SCH (09:00)
[2017-09-19] MEDS: NIFEDIPINE XL 30MG TAB PO SCH (09:45)
[2017-09-19 10:32] LABS: PLATELET ESTIMATE NORMAL
[2017-09-19 11:40] LABS: T4 FREE 0.94 ng/dL (0.76-1.46)
[2017-09-19 12:00] VITALS: BP 145/88
[2017-09-19 15:25] LABS: CREATINE KINASE MB FRACTION 7.6 ng/mL (0.5-3.6); TROPONIN I 0.12 ng/mL (0.00-0.04)
[2017-09-19 16:00] VITALS: BP 167/83
[2017-09-19 16:55] LABS: *AMPHETAMINES SCREEN URINE NEGATIVE (NEGATIVE); *BARBITURATES SCREEN URINE NEGATIVE (NEGATIVE); *BENZODIAZEPINES SCREEN URINE NEGATIVE (NEGATIVE); *COCAINE SCREEN URINE NEGATIVE (NEGATIVE); CANNABINOID URINE SCREEN NEGATIVE (NEGATIVE); METHADONE URINE SCREEN NEGATIVE (NEGATIVE); OPIATES URINE SCREEN NEGATIVE (NEGATIVE); PHENCYCLIDINE URINE SCREEN NEGATIVE (NEGATIVE)
[2017-09-19] MEDS ORDERED: BUDESONIDE 0.5MG/2ML NEB HHN SCH (17:00)
[2017-09-19] MEDS ORDERED: IPRATROPIUM/ALBUTEROL 0.5-3(2.5)MG/3ML NEB HHN SCH (18:00)
== END 2017-09-19 19:55 | disposition left against medical advice (07) | DRG 291 ==
LOC: ER 13:13 → 5WST 16:02 → EDBEDREQSVC 20:04 → ENRESERV 20:56
PROVIDERS: ADMIT Internal Medicine; ATTEND Internal Medicine
PROC: 5A09357 Assistance with Respiratory Ventilation, Less than 24 Consecutive Hours, Continuous Positive Airway Pressure (ICD-10-PCS; principal; 2017-09-18)
DX: I11.0 Hypertensive heart disease with heart failure (principal); J96.00 Acute respiratory failure, unspecified whether with hypoxia or hypercapnia; J44.1 Chronic obstructive pulmonary disease with (acute) exacerbation; E78.00 Pure hypercholesterolemia, unspecified; I50.23 Acute on chronic systolic (congestive) heart failure; I42.9 Cardiomyopathy, unspecified; I25.10 Atherosclerotic heart disease of native coronary artery without angina pectoris; F17.210 Nicotine dependence, cigarettes, uncomplicated; Z53.21 Procedure and treatment not carried out due to patient leaving prior to being seen by health care provider; Z79.899 Other long term (current) drug therapy
CPT/HCPCS: 36415; 36600; 71010; 80048; 80053; 80061; 80305; 82375; 82550; 82553; 82805; 83036; 83880; 84439; 84443; 84484; 85025; 85379; 93005; 93306; 93970; 94640; 94660; 96374; 99291; J1650; J1940; J2930; J7611